=== PATIENT | female | born 1960 | race Two or more races ===

== ENCOUNTER 2025-09-10 19:25 | Inpatient (IN) | payer OTHER ==
[~2025-09-10] VITALS: Ht 154.9 cm; Wt 51.7 kg
[~2025-09-10 19:25] MED LIST: BACTROBAN OINT22 GM TP; MOBIC15 MG PO; PERCOCET 5/3251 TAB PO; SEPTRA DS TABLE1 TAB PO
[2025-09-10] MEDS ORDERED: NORVASC2.5 M1 (20:17)
[2025-09-10] MEDS ORDERED: METFORMIN HCL500 M3 (20:17)
[2025-09-10] MEDS ORDERED: ATORVASTATIN CA20 MG (20:18)
--- NOTE | 2025-09-10 20:18 | NUR ---
PTE ALERTA Y ORIENTA X3 VERBALIZA QUE LA PICARON LAS HORMIGAS EN EL PIES IZQ Y SE LE CONVIRTIO EN CELLULITIS Y ES DIABETICA. FUE HACE 7 ESPINOZA LO TIENE HINCHADO
[2025-09-10] MEDS ORDERED: VANCOMYCIN HCL 1,000 MG VIAL IV ONE (21:15)
[2025-09-10] MEDS ORDERED: ACETAMINOPHEN 500 MG GEL..CAP PO ONE (21:15)
[2025-09-10] MEDS ORDERED: KETOROLAC TROMETHAMINE 30 MG VIAL IU ONE (21:30)
[2025-09-10] MEDS ORDERED: CEFTRIAXONE SODIUM 2,000 MG in 0.9 % SODIUM CHLORIDE 100 ML IV ONE (21:30)
[2025-09-10] MEDS ORDERED: FAMOTIDINE/PF 20 MG in 0.9 % SODIUM CHLORIDE 8 ML IV PUSH ONE (21:30)
[2025-09-11] MEDS ORDERED: VANCOMYCIN HCL 1,000 MG VIAL ONE (00:17)
[2025-09-11] MEDS ORDERED: KETOROLAC TROMETHAMINE 30 MG VIAL ONE ×2 (00:17→19:28)
[2025-09-11] MEDS ORDERED: ACETAMINOPHEN 500 MG GEL..CAP PO ONE (00:17)
[2025-09-11] MEDS ORDERED: FAMOTIDINE/PF 20 MG/2 ML VIAL ONE (00:18)
[2025-09-11] MEDS ORDERED: CEFTRIAXONE SODIUM 1,000 MG VIAL ONE (00:18)
[2025-09-11] MEDS ORDERED: CEFTRIAXONE SODIUM 2,000 MG VIAL ONE (00:19)
[2025-09-11 00:53] LABS: BASO % 0.3 % (0.1-1.2); EOS # 0.27 (0.04-0.54); EOS % 4.3 % (0.7-7.0); LYMPH # 0.83 (1.18-3.74); LYMPH % 13.1 % (19.3-53.1); MEAN PLATELET VOLUME 10.40 fl (9.4-12.4); MONO # 0.61 (0.24-0.82); MONO % 9.7 % (4.7-12.5); NEUT # 4.58 (1.56-6.13); NEUT % 72.4 % (34.0-71.1); RED CELL DISTRIBUTION WIDTH 13.2 % (11.6-14.4)
[2025-09-11 01:00] LABS: ERYTHROCYTE SEDIMENTATION RATE 85 mm/hr (0-30)
[2025-09-11 01:08] LABS: INR 1.03
[2025-09-11 01:12] LABS: ALT/SGPT 20.0 U/L (12-78); AST/SGOT 26.0 U/L (15-37); BILIRUBIN TOTAL 0.37 mg/dL (0.3-1.2); BUN CREA RATIO 29.0 (7.0-25.0); CREATININE SERUM 1.1 mg/dL (0.55-1.02); GFR 50.17; GLOBULINA 4.4 G/DL (2.4-3.5); GLUCOSE FASTING 161.0 mg/dL (65-100); OSMOLALITY SERUM 293.0 MOSM/KG (275-295)
[2025-09-11] MEDS ORDERED: DEXTROSE 50 % IN WATER 0.5 G/ML DISP.SYRIN IV PRN ×2 (01:30→19:30)
[2025-09-11] MEDS ORDERED: INSULIN LISPRO 1,000 UNIT/10 ML UNITS SUBCUTANEO PRN ×2 (01:30→19:30)
[2025-09-11 02:14] LABS: URINE APPEARANCE Clear; URINE BILIRRUBIN Negative (NEGATIVE); URINE BLOOD Negative; URINE COLOR Yellow; URINE GLUCOSE Negative (NEGATIVE); URINE KETONE Trace (NEGATIVE); URINE LEUKOCYTE Negative; URINE NITRATE Negative; URINE UROBILINOGEN 0.2 E.U./dl
[2025-09-11 02:18] LABS: URINE BACTERIA 61.7 uL (0.0-1933); URINE CAST 5.38 uL (0.0-1.40); URINE EPITHELIAL CELLS 21.9 uL (0.0-38.8); URINE RBC 2.4 uL (0.0-20.8); URINE WBC 102.4 uL (0.0-23.2)
[2025-09-11 02:37] LABS: URINE PROTEIN 300 (NEGATIVE)
--- NOTE | 2025-09-11 02:50 | NUR ---
SE EDUCA ACERCA DE TX ORDENADO, SE CANALIZA Y COLECTAN MUESTRAS DE LABORATORIO MEDIANTE MEDIDAS ASEPTICAS. SE ADMINISTRAN MEDICAMENTOS SHARA ORDEN MEDICA. SE OKSANA ENVASE DE UA.
--- NOTE | 2025-09-11 04:40 | NUR ---
SE REALIZA EKG
[2025-09-11] MEDS ORDERED: AMLODIPINE BESYLATE 2.5 MG TABLET PO SCH (09:00)
[2025-09-11] MEDS ORDERED: KETOROLAC TROMETHAMINE 30 MG VIAL IU ONE (18:30)
[2025-09-11] MEDS ORDERED: MORPHINE SULFATE 2 MG/ML SYRINGE IV PRN (19:30)
[2025-09-11] MEDS ORDERED: CLINDAMYCIN PHOSPHATE 600 MG in 0.9 % SODIUM CHLORIDE 50 ML IV SCH (19:30)
[2025-09-11] MEDS ORDERED: ACETAMINOPHEN 500 MG GEL..CAP PO SCH (20:00)
[2025-09-11] MEDS ORDERED: 0.9 % SODIUM CHLORIDE 1,000 ML IV SCH (23:00)
[2025-09-12 02:00] VITALS: BP 140/80; O2SAT 100
[2025-09-12 02:37] VITALS: BP 125/69; O2SAT 97
[2025-09-12 07:50] LABS: BASO % 0.5 % (0.1-1.2); EOS # 0.32 (0.04-0.54); EOS % 8.2 % (0.7-7.0); LYMPH # 0.75 (1.18-3.74); LYMPH % 19.2 % (19.3-53.1); MEAN PLATELET VOLUME 10.70 fl (9.4-12.4); MONO # 0.48 (0.24-0.82); NEUT # 2.32 (1.56-6.13); NEUT % 59.5 % (34.0-71.1); RED CELL DISTRIBUTION WIDTH 13.1 % (11.6-14.4)
[2025-09-12 08:00] LABS: MONO % 12.3 % (4.7-12.5)
[2025-09-12 08:04] LABS: INR 0.97
[2025-09-12 08:11] LABS: BUN CREA RATIO 58.0 (7.0-25.0); CREATININE SERUM 0.38 mg/dL (0.55-1.02); GFR 171.04; GLUCOSE FASTING 101.0 mg/dL (65-100); OSMOLALITY SERUM 292.0 MOSM/KG (275-295)
[2025-09-12 10:12] VITALS: BP 138/55; O2SAT 97
[2025-09-12] MEDS ORDERED: PIPERACILLIN/TAZOBACTAM SODIUM 4.5 GM in 0.9 % SODIUM CHLORIDE 100 ML IV SCH (14:28)
[2025-09-12 18:39] VITALS: BP 160/75; O2SAT 98
[2025-09-12] MEDS ORDERED: LINEZOLID 600 MG TABLET PO SCH (21:00)
[2025-09-13 01:19] VITALS: BP 120/57; O2SAT 99
[2025-09-13 09:19] VITALS: BP 132/67; O2SAT 97
[2025-09-13 21:45] VITALS: BP 123/70
[2025-09-14 01:04] VITALS: BP 133/81; O2SAT 97
[2025-09-14 19:21] VITALS: BP 132/68
[2025-09-15 02:05] VITALS: BP 138/66; O2SAT 96
[2025-09-15 08:41] VITALS: BP 130/65; O2SAT 98
[2025-09-15] MEDS ORDERED: NA PHOS,M-B/NA PHOS,DI-BA 1 BOTTLE ENEMA RECTAL SCH (12:36)
[2025-09-15 22:01] VITALS: BP 149/65
[2025-09-16 01:49] VITALS: BP 121/64; O2SAT 97
[2025-09-16 08:05] LABS: BASO % 0.5 % (0.1-1.2); EOS # 0.24 (0.04-0.54); EOS % 3.7 % (0.7-7.0); LYMPH # 0.61 (1.18-3.74); LYMPH % 9.4 % (19.3-53.1); MEAN PLATELET VOLUME 10.00 fl (9.4-12.4); MONO # 0.49 (0.24-0.82); MONO % 7.6 % (4.7-12.5); NEUT # 5.08 (1.56-6.13); NEUT % 78.6 % (34.0-71.1); RED CELL DISTRIBUTION WIDTH 13.2 % (11.6-14.4)
[2025-09-16 08:13] LABS: ERYTHROCYTE SEDIMENTATION RATE 67 mm/hr (0-30)
[2025-09-16 09:09] LABS: ALT/SGPT 25 U/L (12-78); AST/SGOT 22 U/L (15-37); BILIRUBIN TOTAL 0.37 mg/dL (0.3-1.2); BUN CREA RATIO 20 (7.0-25.0); CREATININE SERUM 0.40 mg/dL (0.55-1.02); GFR 161.21; GLOBULINA 3.1 G/DL (2.4-3.5); GLUCOSE FASTING 106 mg/dL (65-100); OSMOLALITY SERUM 291 MOSM/KG (275-295)
[2025-09-16 09:25] VITALS: BP 155/68; O2SAT 99
[2025-09-16 18:48] VITALS: BP 160/70; O2SAT 98
[2025-09-17 01:41] VITALS: BP 160/66; O2SAT 96
[2025-09-17 08:32] VITALS: BP 125/63; O2SAT 98
== END 2025-09-17 15:11 | disposition home or self-care (01) | DRG 603 ==
LOC: ER 19:26 → MEDJ 09-11 19:49
PROVIDERS: General Practice; Internal Medicine Infectious Disease; ADMIT Student in an Organized Health Care Education/Training Program; ATTEND Student in an Organized Health Care Education/Training Program
PROC: B44HZZZ Ultrasonography of Bilateral Lower Extremity Arteries (ICD-10-PCS; 2025-09-12)
PROC: BQ3MYZZ Magnetic Resonance Imaging (MRI) of Left Foot using Other Contrast (ICD-10-PCS; principal; 2025-09-13)
PROC: 02HV33Z Insertion of Infusion Device into Superior Vena Cava, Percutaneous Approach (ICD-10-PCS; 2025-09-16)
DX: L03.116 Cellulitis of left lower limb (principal); E11.628 Type 2 diabetes mellitus with other skin complications; Z79.4 Long term (current) use of insulin; L08.89 Other specified local infections of the skin and subcutaneous tissue; I10 Essential (primary) hypertension; E11.40 Type 2 diabetes mellitus with diabetic neuropathy, unspecified; E78.49 Other hyperlipidemia